=== PATIENT | female | born 1985 | race Caucasian/White ===

== ENCOUNTER 2019-07-28 09:07 | Emergency (ER) | payer OTHER ==
[~2019-07-28] VITALS: Ht 162.6 cm; Wt 108.9 kg
[~2019-07-28 09:07] MED LIST: AMOXICILLIN500 MG PO; GENTAMICIN SULFA5 ML OU; IBUPROFEN600 MG PO; NORCO 5-325 TA1 EACH PO; SOMA350 MG PO; TYLENOL325 MG PO; ZOFRAN4 MG PO; ZOLOFT50 MG PO
--- NOTE | 2019-07-28 14:53 | EKG ---
[facility] [address] [facility] [place], [place] [address] Signed Sinus tachycardia Otherwise normal ECG Confirmed by CHRISTIANNE WHIPPLE DO ([id number]) on 07/28/2019 2:53:22 PM Electronically Signed By: CHRISTIANNE WHIPPLE DO 07/28/19 1453 PATIENT NAME: JACKELYN NICHOLS Electrocardiogram DATE OF : 87 PHYSICIAN: CHRISTIANNE WHIPPLE DO REPORT #: [id number] REPORT IS CONFIDENTIAL AND NOT TO BE RELEASED WITHOUT AUTHORIZATION
== END 2019-07-28 11:10 | disposition home or self-care (01) ==
LOC: ED 09:07
DX: R07.89 Other chest pain (principal); F41.9 Anxiety disorder, unspecified
CPT/HCPCS: 71045; 93005; 93010; 99285-25

== ENCOUNTER 2020-02-20 13:31 | Emergency (ER) | payer OTHER ==
[~2020-02-20] VITALS: Ht 157.5 cm; Wt 99.8 kg
== END 2020-02-20 14:42 | disposition home or self-care (01) ==
LOC: ED 13:31
DX: O9A.211 Injury, poisoning and certain other consequences of external causes complicating pregnancy, first trimester (principal); S29.012A Strain of muscle and tendon of back wall of thorax, initial encounter; V89.2XXA Person injured in unspecified motor-vehicle accident, traffic, initial encounter
CPT/HCPCS: 81001; 84703; 99283

== ENCOUNTER 2021-03-10 18:29 | Emergency (ER) | payer OTHER ==
[~2021-03-10] VITALS: Ht 160 cm; Wt 99.8 kg
== END 2021-03-10 20:32 | disposition home or self-care (01) ==
LOC: ED 18:29
DX: S90.812A Abrasion, left foot, initial encounter (principal); Z23 Encounter for immunization; W22.8XXA Striking against or struck by other objects, initial encounter; F17.200 Nicotine dependence, unspecified, uncomplicated
CPT/HCPCS: 90471; 90715; 99282